=== PATIENT | female | born 1965 | race Caucasian/White ===

== ENCOUNTER → 2021-07-12 | Outpatient (CLI) | payer MEDICARE, OTHER | END | disposition home or self-care (01) | LOC: LAB SHORT 16:00 | DX: R31.0 Gross hematuria (principal) | CPT/HCPCS: 87086 ==

== ENCOUNTER → 2021-09-18 | Outpatient (CLI) | payer MEDICARE, OTHER | LOC: LAB 10:15 → LAB SHORT 10:15 | DX: R30.0 Dysuria (principal) | CPT/HCPCS: 87086 ==

== ENCOUNTER → 2021-11-02 | Outpatient (CLI) | payer MEDICARE ==
[2021-11-02 17:45] LABS: Source, Urine Clean Catch
[2021-11-02 18:49] LABS: Blood, Urine 1+ (Neg); Glucose Qualitative, Urine Neg (Neg); Ketones, Urine Neg (Neg); Leukocyte Esterase, Urine 1+ (Neg); Nitrite, Urine Pos (Neg); Protein, Urine Neg (Neg); Specific Gravity, Urine 1.015 (1.003-1.022); Urobilinogen, Urine 3+ (Normal)
[2021-11-02 19:06] LABS: Bilirubin, Urine 2+ (Neg); Color, Urine Orange (P-Yellow)
[2021-11-02 19:07] LABS: Appearance, Urine Hazy (Clear)
[2021-11-02 19:08] LABS: Bacteria Mod /hpf; Mucus Light (0-Heavy); Red Blood Cells, Urine 0-2 /hpf (0-2); Squamous Epithelial Cells Few /hpf (Few); White Blood Cells, Urine 0-2 /hpf (0-5)
[2021-11-02 19:09] LABS: Amorphous Light (0-Heavy)
== END ==
LOC: LAB 17:43 → LAB SHORT 17:43
PROVIDERS: Nurse Practitioner Family
DX: R30.0 Dysuria (principal)
CPT/HCPCS: 81001; 87086

== ENCOUNTER → 2022-02-14 | Outpatient (CLI) | payer MEDICARE, OTHER ==
[2022-02-14 17:13] LABS: Source, Urine Clean Catch
[2022-02-14 18:06] LABS: Appearance, Urine Clear (Clear); Bilirubin, Urine Neg (Neg); Blood, Urine 2+ (Neg); Color, Urine Yellow (P-Yellow); Glucose Qualitative, Urine Neg (Neg); Ketones, Urine Neg (Neg); Leukocyte Esterase, Urine 1+ (Neg); Nitrite, Urine Neg (Neg); Protein, Urine Neg (Neg); Specific Gravity, Urine 1.005 (1.003-1.022); Urobilinogen, Urine NORM (Normal)
[2022-02-14 18:23] LABS: Red Blood Cells, Urine 0-2 /hpf (0-2); Squamous Epithelial Cells Mod /hpf (Few); White Blood Cells, Urine 0-2 /hpf (0-5)
[2022-02-14 18:24] LABS: Bacteria Few /hpf; Renal Epithelial Rare /hpf (0-Rare)
== END ==
LOC: LAB 13:15 → LAB SHORT 13:15
PROVIDERS: Nurse Practitioner Family
DX: R39.15 Urgency of urination (principal)
CPT/HCPCS: 81001; 87086; 87147

== ENCOUNTER 2022-10-01 10:36 | Inpatient (IN) | payer MEDICARE, OTHER ==
[2022-10-01] VITALS (23 sets, daily range): BP systolic 119–159; BP diastolic 64–130
[~2022-10-01] VITALS: Ht 170.2 cm; Wt 51.0 kg
[2022-10-01 11:48] LABS: Free Thyroxine 1.21 ng/dL (0.70-1.60); Salicylate 5.8 mg/dL (2.8-20.0); Thyroid Stimulating Hormone 0.481 uIU/mL (0.360-4.800)
[2022-10-01 11:49] LABS: Alanine Aminotransfer (ALT/SGP 30 U/L (12-78); Albumin, Blood 4.5 g/dL (3.4-5.0); Alk Phos 126 U/L (50-136); Anion Gap 16 mmol/L (6-16); Aspartate Aminotrans (AST/SGOT 33 U/L (12-37); Bilirubin, Total 0.8 mg/dL (0.1-1.0); Blood Urea Nitrogen 21 mg/dL (8-24); Bun/Creatinine Ratio 21.4 (12.0-20.0); CO2, Blood 20 mmol/L (21-32); Calcium, Blood 10.5 mg/dL (8.5-10.1); Chloride, Blood 109 mmol/L (98-108); Creatinine, Blood 0.98 mg/dL (0.40-1.00); Globulin, Blood 4.6 g/dL (2.2-4.0); Glomerular Filtration Rate 67 (60-); Glucose, Blood 178 mg/dL (70-99); Potassium, Blood 3.5 mmol/L (3.5-5.5); Sodium, Blood 145 mmol/L (136-145); Total Protein, Blood 9.1 g/dL (6.4-8.2)
[2022-10-01 11:50] LABS: Acetaminophen, Random <2.0 ug/mL (10.0-30.0); Ethanol (Alcohol), Blood, Med <3 mg/dL
[2022-10-01 11:55] LABS: BASOPHILS ABSOLUTE AUTO 0.03 K/mm3 (0.00-0.23); BASOPHILS PERCENT AUTO 0 % (0-2); EOSINOPHILS PERCENT AUTO 0 % (0-6); Hematocrit 46.7 % (33.0-51.0); Hemoglobin 15.3 g/dL (11.5-16.0); IMMATURE GRAN ABSOLUTE AUTO 0.03 K/mm3 (0.00-0.10); IMMATURE GRAN PERCENT AUTO 0 % (0-1); LYMPHOCYTES ABSOLUTE AUTO 1.09 K/mm3 (0.84-5.20); LYMPHOCYTES PERCENT AUTO 9 % (21-46); MONOCYTES ABSOLUTE AUTO 0.35 K/mm3 (0.16-1.47); MONOCYTES PERCENT AUTO 3 % (4-13); Mean Corpuscular HGB 30.1 pg (26.0-34.0); Mean Corpuscular HGB Conc 32.8 g/dL (31.5-36.5); Mean Corpuscular Volume 92 fL (80-100); Mean Platelet Volume 10.6 fL (9.1-12.4); NEUTROPHILS ABSOLUTE AUTO 10.45 K/mm3 (1.96-9.15); NEUTROPHILS PERCENT AUTO 87 % (41-73); Platelet Count 343 K/mm3 (150-400); RDW Coefficient Variation 13.7 % (11.7-14.2); RDW Standard Deviation 46.4 fL (35.1-46.3); Red Blood Cell Count 5.08 M/mm3 (3.80-5.20); White Blood Cell Count 11.95 K/mm3 (4.00-11.30)
[2022-10-01] MEDS ORDERED: ATOR40TA PO (14:19)
[2022-10-01] MEDS ORDERED: LIOT5 PO (14:20)
[2022-10-01] MEDS ORDERED: NEURONTIN300 MG PO (14:20)
[2022-10-01] MEDS ORDERED: QUETIAPINE FUMA5012 PO (14:20)
[2022-10-01] MEDS ORDERED: PRAZOSIN HCL1 M2 PO (14:20)
[2022-10-01] MEDS ORDERED: ZOLOFT10013 PO (14:20)
[2022-10-01] MEDS ORDERED: Alprazolam ER0.5 MG PO (14:20)
[2022-10-01 15:21] LABS: Source, Urine Straight Cath
[2022-10-01 15:27] LABS: Appearance, Urine Clear (Clear); Bilirubin, Urine Neg (Neg); Blood, Urine 4+ (Neg); Glucose Qualitative, Urine Neg (Neg); Ketones, Urine Neg (Neg); Leukocyte Esterase, Urine Neg (Neg); Nitrite, Urine Neg (Neg); Protein, Urine 2+ (Neg); Urobilinogen, Urine NORM (Normal)
[2022-10-01 15:33] LABS: Color, Urine Pale Yellow (P-Yellow)
[2022-10-01 15:34] LABS: Bacteria Rare /hpf; Squamous Epithelial Cells Not Seen /hpf (Few); White Blood Cells, Urine 0-2 /hpf (0-5)
[2022-10-01 15:39] LABS: U Amphetamine Screen Not Detected; U Barbituate Screen Not Detected; U Benzodiazapine Screen DETECTED; U Buprenorphine Screen Not Detected; U Cannabinoids Screen DETECTED; U Cocaine Screen Not Detected; U Methadone Screen DETECTED; U Methamphetamine Screen Not Detected; U Opiates Screen Not Detected; U Oxycodone Screen Not Detected; U Phencyclidine Screen Not Detected; U Propoxyphene Screen Not Detected
--- NOTE | 2022-10-01 17:10 | NUR ---
1600- WANDA ARRIVES TO ICU LYING ON HER RIGHT SIDE ON THE GURNEY, IMMEDIATELY BEGINS SWATTING AT STAFF WHEN EFFORTS MADE TO MOVE HER TO ICU BED. CONTINUED TO COVER HERSELF BACK UP, WOULD NOT ACKNOWLEDGE VOICE OR FOLLOW COMMANDS, WOULD NOT ANSWER QUESTIONS, MADE NO VERBAL SOUNDS. IV NOTED TO BE INFLAMMED AND SWOLLEN, IV R/S ON THE RIGHT FOREARM. PT IN WRIST RESTRAINTS FOR NON COMPLIANCE AND STRIKING AT STAFF. MONITOR SHOWING PROLONGED QT >500, BP AND HR STABLE WHEN PT IS LEFT ALONE. LUNG SOUNDS CLEAR, BELLY QUIET, BARCENAS TO GRAVITY DRAINAGE, PRECEDEX GTT @ 1.4MCG/KG, NS @ 100ML/HR. PT'S PUPILS ~4MM AND REACTIVE BUT WITH A SLIGHT NYSTAGMUS. CONTINUES TO BE NON VERBAL, NOTED OCC EYEBROW RAISES AND GRIN.
--- NOTE | 2022-10-01 18:29 | NUR ---
WANDA HAS SETTLED DOWN WITH THE INFUSION OF THE PRECEDEX, AN ADDITIONAL IV SITE WAS STARTED AND BLOOD DRAWN WITH MINIMAL RESPONSE. SHE REMAINS IN WRIST RESTRAINTS AT THIS TIME FOR SAFETY OF LINES/TUBES/STAFF. BARCENAS CONTINUES WITH GOOD OUTPUT, YELLOW. PT REMAINS CURLED IN POSITION VITALS STABLE.
[2022-10-01 18:32] LABS: Base Excess Venous -1.8 mmol/L; Bicarbonate Venous 23.4 mmol/L (24.0-30.0); PCO2 Venous 35.1 mmHg (38-42); pH Blood Venous 7.42 (7.34-7.37)
--- NOTE | 2022-10-01 19:30 | NUR ---
ASSUMPTION OF CARE PT IS SEDATED ON PRECEDEX DRIP. SHE RESTS QUIETLY UNLESS STIMULATED THEN SHE BECOMES VERY AGITATED, PULLING ON RESTRAINTS. SHE DOES NOT MAINTAIN EYE CONTACT OR FOLLOW DIRECTIONS. SHE IS UNABLE TO BE REORIENTED AT THIS TIME. PUPILS ARE SLUGGISH BUT REACTIVE AT 5MM, EQUAL. SHE IS NOTED TO MOVE ALL EXTREMITIES W/NO NOTABLE WEAKNESS OR DEFICIT TO EITHER SIDE AT THIS TIME.
--- NOTE | 2022-10-01 20:10 | NUR ---
SPOKE W/DANUTA AT POISON CONTROL PT WAS REPORTED TO HAVE USED XYLAZINE. ADVISED THAT PT DID NOT PRESENT HAVE USED THIS BECAUSE SHE WAS THE OPPOSITE OF USUAL CLINICAL PRESENTATION. NO RECOMMENDATIONS GIVEN FOR TREATMENT OR FOLLOW UP AT THIS TIME.
[2022-10-02] VITALS (78 sets, daily range): BP systolic 106–177; BP diastolic 62–102
--- NOTE | 2022-10-02 00:14 | NUR ---
DR MCCAIN NOTIFIED THAT PT PRECEDEX DRIP WAS STOPPED AT 2253 DUE TO ASYMPTOMATIC BRADYCARDIA. BP MAP HAVE REMAINED GREATER THAN 65. NO NEW ORDERS AT THIS TIME.
[2022-10-02 03:51] LABS: BASOPHILS ABSOLUTE AUTO 0.02 K/mm3 (0.00-0.23); BASOPHILS PERCENT AUTO 0 % (0-2); EOSINOPHILS ABSOLUTE AUTO 0.01 K/mm3 (0.00-0.68); EOSINOPHILS PERCENT AUTO 0 % (0-6); Hemoglobin 12.5 g/dL (11.5-16.0); IMMATURE GRAN ABSOLUTE AUTO 0.03 K/mm3 (0.00-0.10); IMMATURE GRAN PERCENT AUTO 0 % (0-1); LYMPHOCYTES ABSOLUTE AUTO 1.95 K/mm3 (0.84-5.20); LYMPHOCYTES PERCENT AUTO 18 % (21-46); MONOCYTES ABSOLUTE AUTO 0.82 K/mm3 (0.16-1.47); MONOCYTES PERCENT AUTO 7 % (4-13); Mean Corpuscular HGB 29.9 pg (26.0-34.0); Mean Corpuscular HGB Conc 33.8 g/dL (31.5-36.5); Mean Corpuscular Volume 89 fL (80-100); Mean Platelet Volume 10.4 fL (9.1-12.4); NEUTROPHILS ABSOLUTE AUTO 8.19 K/mm3 (1.96-9.15); NEUTROPHILS PERCENT AUTO 74 % (41-73); Platelet Count 243 K/mm3 (150-400); RDW Coefficient Variation 14.1 % (11.7-14.2); RDW Standard Deviation 45.1 fL (35.1-46.3); Red Blood Cell Count 4.18 M/mm3 (3.80-5.20); White Blood Cell Count 11.02 K/mm3 (4.00-11.30)
--- NOTE | 2022-10-02 04:33 | NUR ---
PT IV INFILTRATED, SHE BECAME EXTREMELY AGITATED AND RESTLESS. SHE WAS UNABLE TO REMAIN STILL WHILE ANOTHER IV WAS STARTED. SHE WAS KICKING AND ATTEMPTING TO COME OUT OF HER BED AND SHE WAS NOT REDIRECTABLE. DR MCCAIN WAS NOTIFIED AND AN ORDER FOR IM ATIVAN WAS GIVEN. THE MEDICATION WAS ADMINISTERED TO THE PT AND SHE WAS ABLE TO CALM DOWN WHILE ANOTHER IV WAS PLACED. PRECEDEX DRIP IS INFUSING AT THIS TIME, PT IS RESTING COMFORTABLY W/EYES CLOSED.
[2022-10-02 04:42] LABS: Albumin, Blood 3.2 g/dL (3.4-5.0); Albumin/Globulin Ratio 0.9 (0.8-1.8); Bilirubin, Total 0.5 mg/dL (0.1-1.0); Bun/Creatinine Ratio 24.1 (12.0-20.0); Calcium, Blood 8.8 mg/dL (8.5-10.1); Creatinine, Blood 0.91 mg/dL (0.40-1.00); Globulin, Blood 3.6 g/dL (2.2-4.0); Potassium, Blood 3.8 mmol/L (3.5-5.5); Total Protein, Blood 6.8 g/dL (6.4-8.2)
--- NOTE | 2022-10-02 05:56 | NUR ---
SHIFT SUMMERY PT WAS VERY AGITATED AT TIMES DUE TO W/DRAWAL. PRECEDEX DRIP IS AT 0.5, PT IS RESTING COMFORTABLY W/EYES CLOSED CURRENTLY. SHE HAS HAD BRADYCARDIA AT TIMES BUT MAINTAINED ADEQUATE BP AND OXYGENATION. NO TREATMENT NEEDED BUT DR MCCAIN WAS NOTIFIED. SHE DID BECOME MORE APPROPRIATLY RESPONSIVE THE SHIFT PROGRESSED, MAINTAINING EYE CONTACT AND ABLE TO BE SOMEWHAT REDIRECTABLE AT TIMES. ATIVAN WAS GIVEN TWICE TO HELP MANAGE PT SYMPTOMS AND WAS EFFECTIVE EACH TIME. PT IS ON ROOM AIR.
--- NOTE | 2022-10-02 07:30 | NUR ---
CARE ASSUMPTION DURING BEDSIDE SHIFT REPORT Bess SOSA RN THE PT IS LYING IN BED ASLEEP W SWB RESTRAINTS IN PLACE. PT AWAKENS TO OUR VOICE AND MAKES MEANINGFUL EYE CONTACT. PT IS NONVERBAL BUT NODS HER HEAD TO YES OR NO QUESTIONS. PT APPEARING VERY RESTLESS WHEN AWAKE SHE IS PULLING AGAINST RESTRAINTS AND TOSSING SIDE TO SIDE. PT HAS PRECEDEX GTT RUNNING, GTT RATE REDUCED AT THIS TIME DUE TO BRADYCARDIA SEE FLOWSHEET FOR DETAILS. MONITOR SHOWING SB 47-55. PT GIVEN WARM BLANKET AND IS ASLEEP ONCE WE EXITED THE .
--- NOTE | 2022-10-02 07:48 | NUR ---
UPDATE PT'S SO AT BEDSIDE W THIS RN, PT AWAKE AND COMMUNICATING VERBALLY. PT IS AXO TO SELF BUT DOES NOT KNOW WHERE SHE IS OR WHY SHE IS HERE. PT TEARFUL BUT MUCH CALMER AT THIS TIME.
[2022-10-02 11:18] LABS: Creatine Kinase MB 21.7 ng/mL (0.0-3.6)
[2022-10-02 11:25] LABS: Creatine Kinase MB Index 0.9 (0.0-4.0)
--- NOTE | 2022-10-02 14:25 | NUR ---
Pt. is awake in bed when I visit. Pt. displays some anxiety when I first visit, and is unsettled about being a Pt. in the hospital. Listen with empathy and a calming presence, and attempting to normalize the Pt. experience. The Pt. displayed evidence of understanding and presented with less anxiety. Prayed with Pt. Pt. verbalized gratitude for the spiritual care visit.
--- NOTE | 2022-10-02 16:19 | NUR ---
UPDATE PT IS VERY AGITATED TURNING HERSELF IN BED AND ATTEMPTING TO EXIT THE BED EVEN WITH THE SWB RESTRAINTS IN PLACE. DR. HILLIARD AND DR. LANDRY AT BEDSIDE SPEAKING WITH PT. PT AGREEING TO STAY ONE MORE NIGHT.
--- NOTE | 2022-10-02 17:26 | NUR ---
DAYSHIFT SUMMARY PT HAS REMAINED AXO TO SELF THIS SHIFT BUT NEEDING REDIRECTED OFTEN ABOUT WHERE SHE IS AND WHY SHE IS HERE. PT HAS BEEN COMMUNICATING W STAFF ALL SHIFT BUT BECOMES FEARFUL AND AFRAID AT TIMES FOR NO APPERENT REASON THOUGH SHE IS CALMED EASILY W REASSURANCE THAT SHE IS SAFE AND GETTING BETTER. PT'S MOITOR SHOWING SR 60'S THIS AFTERNOON THOUGH SHE HAS BEEN SINUS JOSUE LOW 42 DUE TO THE PRECEDEX GTT. BP MODERATELY ELEVATED THIS SHIFT W SBP 140'S-160'S. SPO2 >94% ON RM AIR. PT AFEBRILE THIS SHIFT. PT VERY ANXIOUS ALL SHIFT REQUIRING PRECEDEX GTT, SEE FLOWSHEET FOR DETAILS. PT RECIEVED GEODON X2 THIS SHIFT FOR AGITATION. PT PASSING BEDSIDE SWALLOW EVAL THIS SHIFT AND ORDERED A REGULAR DIET AND ATE APPROX 50% OF HER DINNER. PT HAS BARCENAS CATHETER THAT IS PATENT AND DRAINED 1200ML CLEAR YELLOW URINE THIS SHIFT. PT SWITCHED FROM SWB RESTRAINTS TO NIKHIL VEST THIS AFTERNOON THE BIGGER CONCERN WAS HER IMPULSIVENESS TO EXIT THE BED/CHAIR RATHER THAN HER PULLING AT LINES. PT RESTARTED ON HER METHADONE THIS SHIFT, DOSE CONFIRMED WITH [facility] DIRECTOR BEFORE ORDERED. PT CURRENTLY SITTING IN CHAIR WITH PRECEDEX RUNNING AT 0.6 MCG/KG/HR AND NS RUNNING AT 100ML/HR. WILL REPORT TO ONCOMING RN.
--- NOTE | 2022-10-02 20:47 | NUR ---
ASSUMED CARE OF PT AT 1915. REPORT RECEIVED AT BEDSIDE. PT PRESENTS IN BEDSIDE CHAIR. SITTER IN ROOM. PT PARTICIPATES IN REPORT. PT DEMONSTRATES BEING VERY IMPULSIVE. PULLS AT LINES AND TUBES. SITTER BUSY WITH KEEPING PT SAFE FROM SELF HARM. PT VERBALLY CHALLENGING TO SITTER. NEEDS FREQUENT REDIRECTION. 10 MG GEODON GIVEN IM TO RIGHT DELTOID. NO SIGNIFICANT CHANGE NOTED. DID INCREASE PRECEDEX DRIP TO 0.5 MCG'S/KG/HOUR. PENDING RESULTS. WILL REVIEW CHART AND PLAN OF CARE FOR THIS PT.
[2022-10-03] VITALS (20 sets, daily range): BP systolic 141–182; BP diastolic 82–122
--- NOTE | 2022-10-03 01:43 | NUR ---
PT VOICES THAT SHE FEELS "LESS ANTSY" MORE ALERT AND CONVERSANT. HAVE TITRATED PRECEDEX TO 0.4 MCG'S/KG/HOUR. WILL CONTINUE TO TITRATE ABLE. PT NO LONGER PULLING AT LINES. PT STATES THAT SHE FEELS BETTER WITHOUT THE CATHETER. HAS BEEN ABLE TO TELL SITTER THAT SHE NEEDS TO GET UP TO COMMODE TO VOID. WILL CONTINUE TO MONITOR.
[2022-10-03 03:42] LABS: BASOPHILS ABSOLUTE AUTO 0.02 K/mm3 (0.00-0.23); BASOPHILS PERCENT AUTO 0 % (0-2); EOSINOPHILS ABSOLUTE AUTO 0.02 K/mm3 (0.00-0.68); EOSINOPHILS PERCENT AUTO 0 % (0-6); Hematocrit 35.7 % (33.0-51.0); Hemoglobin 12.2 g/dL (11.5-16.0); IMMATURE GRAN ABSOLUTE AUTO 0.04 K/mm3 (0.00-0.10); IMMATURE GRAN PERCENT AUTO 1 % (0-1); LYMPHOCYTES ABSOLUTE AUTO 2.04 K/mm3 (0.84-5.20); LYMPHOCYTES PERCENT AUTO 27 % (21-46); MONOCYTES ABSOLUTE AUTO 0.51 K/mm3 (0.16-1.47); MONOCYTES PERCENT AUTO 7 % (4-13); Mean Corpuscular HGB 29.9 pg (26.0-34.0); Mean Corpuscular HGB Conc 34.2 g/dL (31.5-36.5); Mean Corpuscular Volume 88 fL (80-100); Mean Platelet Volume 9.3 fL (9.1-12.4); NEUTROPHILS ABSOLUTE AUTO 4.93 K/mm3 (1.96-9.15); NEUTROPHILS PERCENT AUTO 65 % (41-73); Platelet Count 231 K/mm3 (150-400); RDW Coefficient Variation 13.7 % (11.7-14.2); RDW Standard Deviation 43.7 fL (35.1-46.3); Red Blood Cell Count 4.08 M/mm3 (3.80-5.20); White Blood Cell Count 7.56 K/mm3 (4.00-11.30)
[2022-10-03 04:01] LABS: Albumin, Blood 3.4 g/dL (3.4-5.0); Bilirubin, Total 0.4 mg/dL (0.1-1.0); Bun/Creatinine Ratio 18.1 (12.0-20.0); Calcium, Blood 8.6 mg/dL (8.5-10.1); Creatinine, Blood 0.83 mg/dL (0.40-1.00); Globulin, Blood 3.3 g/dL (2.2-4.0); Magnesium, Blood 1.6 mg/dL (1.6-2.4); Phosphorus, Blood 2.5 mg/dL (2.5-4.9); Potassium, Blood 2.6 mmol/L (3.5-5.5); Total Protein, Blood 6.7 g/dL (6.4-8.2)
--- NOTE | 2022-10-03 07:05 | NUR ---
PT HAS BECOME SOMEWHAT ANXIOUS THIS MORNING WANTING TO GO HOME NOW. DID EXPLAIN TO PT THAT HER DOCTOR WILL BE IN AND MAKE THE DECISION IF SHE IS MEDICALLY READY TO GO HOME. WILL CONTINUE TO MONITOR PT, AND WILL REPORT OFF TO ONCOMING RN.
--- NOTE | 2022-10-03 07:10 | NUR ---
CARE ASSUMPTION DURING BEDSIDE SHIFT REPORT WITH MARY CANADA THE PT IS SITTING UPRIGHT IN BED ON RM AIR. PT IS VERY ANXIOUS BUT ENGAGING IN CALM CONVERSATION. PT'S MONITOR SHOWS SR IN THE 60'S. PT IN NO DISTRESS BUT IS VERBALLY EXPRESSING HER DESIRE TO LEAVE THIS AM. PT REDIRECTED AND EDUCATED THAT THE PROVIDER WILL ASSESS HER THIS AM AND MAKE THAT DECESION. PT AGREEING TO PARTICIPATE IN CARE UNTIL THAT POINT.
[2022-10-03] MEDS ORDERED: POTA10T PO (10:27)
--- NOTE | 2022-10-03 10:46 | NUR ---
DISCHARGE PT REVIEWED DISCHARGE INSTRUCTIONS W THIS RN. IV'S DC'D. RX FAXED TO PT'S PRIMARY PHARMACY. PT'S RIDE CONTACTED AND PT TAKEN OUT IN WC.
== END 2022-10-03 10:50 | disposition home or self-care (01) | DRG 93 ==
LOC: ER 10:36 → ICUE 14:37
PROVIDERS: Emergency Medicine; Family Medicine; ADMIT Internal Medicine
DX: G92.8 Other toxic encephalopathy (principal); T43.505A Adverse effect of unspecified antipsychotics and neuroleptics, initial encounter; Z66 Do not resuscitate; F12.10 Cannabis abuse, uncomplicated; E03.9 Hypothyroidism, unspecified; E87.6 Hypokalemia; F15.10 Other stimulant abuse, uncomplicated; F11.10 Opioid abuse, uncomplicated; G89.29 Other chronic pain; F17.210 Nicotine dependence, cigarettes, uncomplicated; M54.9 Dorsalgia, unspecified; E78.5 Hyperlipidemia, unspecified; Z88.0 Allergy status to penicillin; Z91.030 Bee allergy status; Z91.038 Other insect allergy status; Z87.440 Personal history of urinary (tract) infections; Z86.19 Personal history of other infectious and parasitic diseases; Z78.1 Physical restraint status; Z79.899 Other long term (current) drug therapy; Z79.02 Long term (current) use of antithrombotics/antiplatelets; Z98.890 Other specified postprocedural states
CPT/HCPCS: 36415; 51702; 51798; 70450; 71045; 80053; 81001; 81025; 82550; 82553; 82746; 82803; 83605; 83735; 84100; 84439; 84443; 85025; 87040; 93005; 93010; 96361-59; 96365-59; 96366-59; 96367-59; 96375-59; 96376-59; 99285-25; A9270; G0480; J0696; J1650; J2060; J3475; J3486; J7030; J7050

== ENCOUNTER → 2023-01-21 | Outpatient (CLI) | payer MEDICARE, OTHER ==
[~2023-01-21] MED LIST: ATOR40TA PO; Alprazolam ER0.5 MG PO; LIOT5 PO; NEURONTIN300 MG PO; POTA10T PO; PRAZOSIN HCL1 M2 PO; QUETIAPINE FUMA5012 PO; ZOLOFT10013 PO
== END ==
LOC: LAB SHORT 17:20 → LAB 17:20
DX: R30.0 Dysuria (principal)
CPT/HCPCS: 87086

== ENCOUNTER → 2023-04-03 | Outpatient (CLI) | payer MEDICARE, OTHER ==
[2023-04-03 18:40] LABS: Source, Urine Clean Catch
[2023-04-03 18:46] LABS: Appearance, Urine Clear (Clear); Bilirubin, Urine Neg (Neg); Blood, Urine 2+ (Neg); Color, Urine Amber (P-Yellow); Glucose Qualitative, Urine Neg (Neg); Ketones, Urine Neg (Neg); Leukocyte Esterase, Urine 1+ (Neg); Nitrite, Urine Neg (Neg); Protein, Urine 1+ (Neg); Specific Gravity, Urine 1.015 (1.003-1.022); Urobilinogen, Urine NORM (Normal)
[2023-04-03 18:57] LABS: Bacteria Few /hpf; Squamous Epithelial Cells Few /hpf (Few)
== END ==
LOC: LAB 17:31 → LAB SHORT 17:31
PROVIDERS: Family Medicine
DX: R30.0 Dysuria (principal); R10.2 Pelvic and perineal pain; R31.9 Hematuria, unspecified
CPT/HCPCS: 81001; 87086

== ENCOUNTER 2023-10-04 04:24 | Inpatient (IN) | payer MEDICARE, OTHER ==
[~2023-10-04] VITALS: Ht 170.2 cm; Wt 54.4 kg
[~2023-10-04 04:24] MED LIST changes: +ALPRAZOLAM0.25 MG PO; -Alprazolam ER0.5 MG PO; +Estrace Vagin42.5 GM VAG; +NITR100CA PO; +OLAN2.5 PO; +STIOLTO RESPIMAT4 G1 INH
[2023-10-04 04:48] LABS: Appearance, Urine Clear (Clear); Bilirubin, Urine Neg (Neg); Blood, Urine 4+ (Neg); Color, Urine Yellow (P-Yellow); Glucose Qualitative, Urine Neg (Neg); Ketones, Urine Neg (Neg); Leukocyte Esterase, Urine 1+ (Neg); Nitrite, Urine Neg (Neg); Protein, Urine 2+ (Neg); Source, Urine Clean Catch; Specific Gravity, Urine 1.015 (1.003-1.022); Urobilinogen, Urine NORM (Normal)
[2023-10-04] MEDS ORDERED: ATOR10 PO (04:50)
[2023-10-04] MEDS ORDERED: PRAZ1 PO (04:50)
[2023-10-04] MEDS ORDERED: GABA100 PO (04:50)
[2023-10-04 05:08] LABS: U Benzodiazapine Screen DETECTED; U Cannabinoids Screen DETECTED; U Methadone Screen DETECTED
[2023-10-04 05:09] LABS: BASOPHILS ABSOLUTE AUTO 0.04 K/mm3 (0.00-0.23); BASOPHILS PERCENT AUTO 1 % (0-2); EOSINOPHILS ABSOLUTE AUTO 0.11 K/mm3 (0.00-0.68); EOSINOPHILS PERCENT AUTO 2 % (0-6); Hematocrit 42.6 % (33.0-51.0); Hemoglobin 14.1 g/dL (11.5-16.0); IMMATURE GRAN ABSOLUTE AUTO 0.01 K/mm3 (0.00-0.10); IMMATURE GRAN PERCENT AUTO 0 % (0-1); LYMPHOCYTES ABSOLUTE AUTO 1.96 K/mm3 (0.84-5.20); LYMPHOCYTES PERCENT AUTO 37 % (21-46); MONOCYTES ABSOLUTE AUTO 0.32 K/mm3 (0.16-1.47); MONOCYTES PERCENT AUTO 6 % (4-13); Mean Corpuscular HGB 29.3 pg (26.0-34.0); Mean Corpuscular HGB Conc 33.1 g/dL (31.5-36.5); Mean Corpuscular Volume 88 fL (80-100); Mean Platelet Volume 11.2 fL (9.1-12.4); NEUTROPHILS ABSOLUTE AUTO 2.83 K/mm3 (1.96-9.15); NEUTROPHILS PERCENT AUTO 54 % (41-73); Platelet Count 202 K/mm3 (150-400); RDW Coefficient Variation 13.3 % (11.7-14.2); RDW Standard Deviation 42.8 fL (35.1-46.3); Red Blood Cell Count 4.82 M/mm3 (3.80-5.20); White Blood Cell Count 5.27 K/mm3 (4.00-11.30)
[2023-10-04 05:09] LABS: U Amphetamine Screen Not Detected; U Barbituate Screen Not Detected; U Buprenorphine Screen Not Detected; U Cocaine Screen Not Detected; U Methamphetamine Screen Not Detected; U Opiates Screen Not Detected; U Oxycodone Screen Not Detected; U Phencyclidine Screen Not Detected
[2023-10-04 05:17] LABS: Bacteria Mod /hpf; Squamous Epithelial Cells Few /hpf (Few)
[2023-10-04] MEDS ORDERED: Ziprasidone Mesylate 20 MG / Vial IM ONE (05:40)
[2023-10-04 05:42] LABS: Ethanol (Alcohol), Blood, Med <3 mg/dL; Magnesium, Blood 2.3 mg/dL (1.6-2.4); Salicylate 8.6 mg/dL (2.8-20.0)
[2023-10-04 05:45] LABS: Alanine Aminotransfer (ALT/SGP 16 U/L (12-78); Albumin, Blood 4.2 g/dL (3.4-5.0); Alk Phos 135 U/L (50-136); Anion Gap 9 mmol/L (3-11); Aspartate Aminotrans (AST/SGOT 15 U/L (12-37); Bilirubin, Total 0.4 mg/dL (0.1-1.0); Blood Urea Nitrogen 20 mg/dL (8-24); Bun/Creatinine Ratio 23.8 (12.0-20.0); CO2, Blood 23 mmol/L (21-32); Chloride, Blood 118 mmol/L (98-108); Creatinine, Blood 0.84 mg/dL (0.40-1.00); Glomerular Filtration Rate 80 (60-); Glucose, Blood 134 mg/dL (70-99); Potassium, Blood 3.6 mmol/L (3.5-5.5); Sodium, Blood 146 mmol/L (136-145); Total Protein, Blood 8.2 g/dL (6.4-8.2)
[2023-10-04 05:47] LABS: Acetaminophen, Random <2.0 ug/mL (10.0-30.0)
[2023-10-04] MEDS ORDERED: LORazepam 1 MG Tab PO ONE (08:30)
[2023-10-04] MEDS ORDERED: OLANZapine 10 MG Vial IM ONE ×2 (09:40→12:50)
[2023-10-04] MEDS ORDERED: OLANZapine ODT 5 MG Tab MM PRN (11:00)
[2023-10-04] MEDS ORDERED: Ondansetron HCl 2 MG / ML 2ML Vial IV PRN (11:00)
[2023-10-04] MEDS ORDERED: Haloperidol Lactate Inj. 5 MG/ML Injection IV ONE (13:05)
--- NOTE | 2023-10-04 14:33 | NUR ---
1430 Received report and pt to room 347. Pt lethargic, verbally aroused, nonverbal. Spring in place. Pain and safety maintained at this time. Will continue to monitor.
--- NOTE | 2023-10-04 14:41 | NUR ---
PT ADMITTED TO ROOM 308 FROM ED AT 1217, PT WAS AGITATED AND TRYING TO GET OFF GOURNEY BEFORE RAILS WERE DOWN. PT IMMEDIATELY TRIED TO GET OUT THE DOOR. RN REDIRECTED HER AND STOOD IN THE ROOM WITH PT FOR AN HOUR REDIRECTING. PT NONVERBAL, MIN EYE CONTACT. AMBULATORY, AGITATED AND MOVING FROM BED TO CHAIR TO BATHROOM AND AGAIN TRYING TO GET OUT OF ROOM, WOULD BUMP INTO RN BUT WAS REDIRECTABLE WITH VERBAL CUEING ANS SHE WOULD TRY ANOTHER WAY. CALLED SECURITY TO STANDBY OUTSIDE OF ROOM SHOULD PT ESCAPE. ORIENTED PT TO PLACE, CALL LIGHT AND SAFETY. PT WOULD NOT DRINK WATER WHEN OFFERED. CALLED DR MICHAEL TO INFORM HIM OF CIRCUMSTANCES. HE CAME TO BEDSIDE APPROX 1245, ORDERED ZYPREXA, GIVEN 5MG IM AND 4 STAFF ASSISTED PT TO BED AND APPLIED A NIKHIL VEST. WORKING ON GETTING A BED IN SCU. FOR NOW 1:1 INITIATED. AFTER ZYPREXA, PT SOON FELL ASLEEP AND STILL MOVES AROUND A BIT IN BED IS NOT ATTEMPTING TO ACTIVELY GET OOB. SITTER IN PLACE OF 1315. REPORT TO VLAD 1410, MOVED PT TO ROOM 347 AT 1418. PT STAYED IN BED,BED SWAP.
[2023-10-04] MEDS ORDERED: Haloperidol Lactate Inj. 5 MG/ML Injection IV PRN (16:15)
[2023-10-04 17:37] VITALS: BP 180/119
--- NOTE | 2023-10-04 17:40 | NUR ---
Pt woke up diaphoretic and agitated. Remains nonverbal. Thrashing in bed. Concerned of low bp, however bp elevated. Will recheck once pt settles. Pt now resting quietly.
[2023-10-04] MEDS ORDERED: Prazosin HCl 1 MG Cap PO SCH (21:00)
[2023-10-04] MEDS ORDERED: Gabapentin 100 MG Cap PO SCH (21:00)
--- NOTE | 2023-10-05 02:45 | NUR ---
Attempt to take vital signs at begining of shift was inappropriate due to patients duress and sparatic movements. Shortly after she began dry heaving, Patient calmed down and has been less aggitated the second part of my shift
[2023-10-05] MEDS ORDERED: Liothyronine Sodium 5 MCG Tab PO SCH (06:00)
[2023-10-05 06:17] LABS: Bun/Creatinine Ratio 30.2 (12.0-20.0); Calcium, Blood 10.4 mg/dL (8.5-10.1); Creatinine, Blood 1.06 mg/dL (0.40-1.00); Potassium, Blood 4.6 mmol/L (3.5-5.5)
--- NOTE | 2023-10-05 06:25 | NUR ---
SHIFT SUMMARY: PATIENT MUTE, NO INDICATION THAT PATIENT UNDERSTANDS THAT SHE IS BEING TALKED TO. PUPILS ARE DILATED AT 4-5 WITH SLUGGISH REFLEX, DOES NOT FOCUS ON ANYTHING IN THE ROOM. PATIENT SLEPT FOR THIRTY MINUTES AT 10PM - PATIENT SPENT MOST OF SHIFT RESTLESS IN BED, MOVING FROM SUPINE TO PRONE TO LEFT SIDE TO RIGHT SIDE TO SITTING TO CROSS LEGGED EVERY TEN SECONDS. PATIENT IN NIKHIL VEST. LABS WERE TAKEN BY FOUR STAFF MEMBERS HOLDING PATIENT STILL AND BY TWO PHLEBOTOMISTS. PATIENT NON-REDIRECTABLE. PATIENT HAD AN EPISODE OF DRY HEAVING AT 11PM, WITH NO EMESIS. HALDOL GIVEN TWICE DURING SHIFT. NO ORAL MEDICATIONS TAKEN BY PATIENT. PATIENT WILL NOT SIT STILL FOR VITALS. MD NATHANIEL MADE AWARE OF THIS. 1:1 SITTER.
[2023-10-05] MEDS ORDERED: LORazepam 1 MG Tab PO ONE (07:00)
[2023-10-05] MEDS ORDERED: LORazepam 2 MG/ML 1ML Injection IV ONE (07:00)
[2023-10-05] MEDS ORDERED: HydrALAZINE HCl 20 MG / ML 1ML Vial IV PRN (07:30)
[2023-10-05] MEDS ORDERED: LORazepam 2 MG/ML 1ML Injection IV PRN (07:30)
[2023-10-05] MEDS ORDERED: Dextrose 5% 1,000 ML IV SCH (08:00)
[2023-10-05] MEDS ORDERED: Haloperidol Lactate Inj. 5 MG/ML Injection IM ONE ×2 (08:30→10:20)
--- NOTE | 2023-10-05 08:30 | NUR ---
Unable to verify if current OTP treatment recipient/treatment until tomorrow when facility open. PIV leaking after IV Ativan this am. Unable to restart with 4 staff ast as pt is thrashing in bed and is not directable. Pt refuses all po intake including meds. Dr. Magana updated. IM meds ordered. 1:1 sitter at bedside. Restraints in place.
[2023-10-05] MEDS ORDERED: Enoxaparin 40 MG/0.4 ML SYR SC SCH (09:00)
[2023-10-05] MEDS ORDERED: Atorvastatin 10 MG Tab PO SCH (09:00)
[2023-10-05] MEDS ORDERED: Sertraline HCl 100 MG Tab PO SCH (09:00)
[2023-10-05] MEDS ORDERED: ALPRAZolam 0.25 MG Tab PO SCH (09:00)
[2023-10-05] MEDS ORDERED: LORazepam 2 MG/ML 1ML Injection IM ONE (10:20)
[2023-10-05] MEDS ORDERED: DiphenhydrAMINE HCl 50 MG/ML 1ML Vial IM ONE (10:20)
[2023-10-05] MEDS ORDERED: Methadone HCL 5 MG TAB PO SCH (11:00)
[2023-10-05 11:10] VITALS: BP 151/116
[2023-10-05] MEDS ORDERED: Acetaminophen 325 MG TABLET PO PRN (13:15)
--- NOTE | 2023-10-05 14:55 | NUR ---
Pt appears to be resting more comfortably with eyes closed. Less thrashing.1:1 sitter at bedside. Will continue to follow. corset fitter to attempt power glide for IV access. Multiple attempts this am with 3 RNs and 3 additional staff to ast.
[2023-10-05 15:17] VITALS: BP 129/97
[2023-10-05] MEDS ORDERED: Cefuroxime Axetil 250 MG Tab PO SCH (21:00)
--- NOTE | 2023-10-05 21:18 | NUR ---
TOOK OVER FOR PRIMARY RN WHEN SHE TOOK HER BREAK. PT DENIES NEEDS AT THIS TIME.
--- NOTE | 2023-10-05 23:44 | NUR ---
ASSUMED CARE WHILE PRIMARY NURSE TOOK BREAK. PT DENIES NEEDS AT THIS TIME.
--- NOTE | 2023-10-06 02:56 | NUR ---
ASSUMED CARE OF PT WHEN PRIMARY NURSE WENT TO BREAK. PT DENIES NEEDS AT THIS TIME.
[2023-10-06 05:09] LABS: Bun/Creatinine Ratio 34.5 (12.0-20.0); Calcium, Blood 9.8 mg/dL (8.5-10.1); Creatinine, Blood 1.16 mg/dL (0.40-1.00); Potassium, Blood 3.7 mmol/L (3.5-5.5)
--- NOTE | 2023-10-06 05:39 | NUR ---
EOS NOTE: PATIENT HAS BECOME MORE ORIENTED & VERBAL THE NIGHT WENT ON. MOSTLY NONVERBAL UNTIL ABOUT 0200 WHEN PATIENT BEGAN ANSWERING YES/NO QUESTIONS MORE READILY, STILL DROWSY & DRIFTING OFF TO SLEEP MID CONVORSATIION. BY THE END OF THE SHIFT PATIENT WAS MORE ALERT & FOLLOWING MORE COMMANDS. SITTER & NIKHIL STILL IN PLACE PATIENT IS IMPULSIVE & FOLLOWS COMMANDS BUT GOES BACK TO PULLING AT LINES/NIKHIL WHILE TRYING TO GET OUT OF BED. PATIENT WAS ABLE TO GIVE RN VERBAL TO TALK TO DELMAR SNOW, WHO CALLED TO ASK FOR UPDATES & SEE HOW SHE COULD BE OF AID TO HOSPITAL STAFF. DELMAR IS [facility] EMERGENCY CONTACT. PATIENT SAID SHE GETS METHADONE AT A DOWNTOWN CLINIC. IV STILL IN PLACE TO L FA, SALINE LOCKED. PATIENT WAS ABLE TO LET STAFF KNOW SHE NEEDED TO VOID, STAFF PLACED PT ON BEDPAN BUT PATIENT WAS UNABLE TO FOLLOW COMMANDS FROM THERE & KEPT TAKING THE BEDPAN OUT. PT IS STILL MOSTLY INCONTINENT. DELMAR WOULD LIKE TO BE UPDATED OR INCLUDED ON PATIENTS CARE TO ASSIST WITH PATIENT LEAVING HOSPITAL WHEN THE TIME COMES, DELMAR LIVES IN [place]. WANDA HAS SOME FAMILY IN THE [place] AREA. THERE IS CONCERN OF PT DISCHARGING BACK HOME DUE TO DRUGS BEING SHARED TO/FROM HER CURRENT ROOMMATE.
[2023-10-06 05:53] VITALS: BP 127/93
[2023-10-06 07:37] VITALS: BP 122/99
[2023-10-06] MEDS ORDERED: Methadone HCL 10 MG TAB PO SCH (10:00)
[2023-10-06] MEDS ORDERED: Dextrose 5% 500 ML IV SCH (12:00)
--- NOTE | 2023-10-06 13:15 | NUR ---
FERNY FROM [facility] CALLED. RE METHADOONE, SHOULD BE RECEIVING [address] MICHAEL. HE CHANGING ORDERS/
[2023-10-06 15:31] LABS: Bun/Creatinine Ratio 27.3 (12.0-20.0); Calcium, Blood 9.2 mg/dL (8.5-10.1); Creatinine, Blood 1.54 mg/dL (0.40-1.00); Potassium, Blood 3.7 mmol/L (3.5-5.5)
[2023-10-06 16:14] VITALS: BP 72/63
[2023-10-06 16:41] VITALS: BP 90/70
--- NOTE | 2023-10-06 16:48 | NUR ---
BP 72/63 AT 1415, RECHECK 90/70 AT 1640. PT REMAINS ASYMPTOMATIC. STILL AMBULATING TO BATHROOM WITH NO S/S. DISCUSSED WITH DR MICHAEL. ORDERS FOR FLUIDS. ALSO, 2 MD HOLD CONTINUES.
[2023-10-06] MEDS ORDERED: Lactated Ringer's 1,000 ML IV SCH (16:55)
--- NOTE | 2023-10-06 17:49 | NUR ---
PT PLEASANT TODAY. ALERT TO SELF AND FAMILY. KNOWS LIVES IN [place] AND IS AT [facility], NOT SURE WHERE [facility] IS, UNABLE TO TELL ME DATE. H/R REG, NO MURMUR NOTED. NO EDEMA. LUNGS CLEAR, RESP EASY, UNLABORED. ON R.A. BT X4 LAST BM TODAY. PER PT LOOSE RUNNY STOOL TODAY. ABOUT EVERY HALF HOUR THIS AFT. VSS SOME SOFT THIS AFT. ASYMPTOMATIC. DISCUSSED WITH , NEW FLUIDS ORDERED. NO OTHYER NEW CONCERNS NOTED. BED IN LOW POSITION, CALLLITE IN REACH, CALLS APPROP. SITTER AT ROOM . 2 MD HOLD.
[2023-10-06] MEDS ORDERED: Loperamide HCl 2 MG Cap PO PRN (18:10)
[2023-10-06] MEDS ORDERED: Cranberry Extract 250MG W/30 MG Vitamin C Tab PO ONE (20:20)
[2023-10-06 21:08] VITALS: BP 96/81
[2023-10-07 03:00] VITALS: BP 101/71
--- NOTE | 2023-10-07 05:37 | NUR ---
NOC SHIFT SUMMARY PT HAS BEEN ORIENTED X4, ALERT, COOPERATIVE AND PLEASANT. SHE IS HAVING PAIN WITH URINATION, RECEIVED NEW ORDER FOR AZO, SEE MAR. STILL EXPERIENCING POOR PO INTAKE, RUNNING IVF. ON 2MD HOLD, SITTER AT BEDSIDE ALL SHIFT.
[2023-10-07 05:38] LABS: Bun/Creatinine Ratio 34.7 (12.0-20.0); Calcium, Blood 8.7 mg/dL (8.5-10.1); Creatinine, Blood 1.24 mg/dL (0.40-1.00); Potassium, Blood 3.2 mmol/L (3.5-5.5)
[2023-10-07 07:31] VITALS: BP 115/90
[2023-10-07] MEDS ORDERED: Cranberry Extract 250MG W/30 MG Vitamin C Tab PO SCH ×2 (09:00)
[2023-10-07] MEDS ORDERED: Potassium Chloride 20 MEQ/15 ML UDC PO ONE (09:40)
[2023-10-07 14:10] VITALS: BP 124/84
--- NOTE | 2023-10-07 17:37 | NUR ---
PT A/O X4 TODAY. ANSWERS QUESTIONS APPROP. CONTINUES TO BE ANX. STATES PAIN TOLERABLE WITH METHADONE ORDERED. PT STATES SHE FEELS IS GOOD TO GO HOME. NOT SURE WHY HERE. DISCUSSED LABS AND ESPECIALLY KIDNEY FUNCTION. EXPLAINED THAT DRS WILL BE LOOKING FOR HER BEST MEDICAL INTEREST TO WHEN OKAY TO BE RELEASED. PT STATES NO DIARRHEA, CONTINUES TO AMBULATE TO BATHROOM REGULARLY TO URINATE. DR DID D/C FLUIDS. SHE IS WAITING FOR DR BAEZA TO VISIT. NO OTHER NEW CONCERNS NOTED. BED IN LOW POSITION, CALL LITE IN REACH. CALLS APPROP
[2023-10-07 20:10] VITALS: BP 131/94
[2023-10-07] MEDS ORDERED: ALPRAZolam 0.25 MG Tab PO ONE (20:20)
[2023-10-07] MEDS ORDERED: Nicotine 14 MG PATCH TOP ONE (20:20)
--- NOTE | 2023-10-07 21:08 | NUR ---
THIS RN PROVIDING BREAK COVERAGE FOR PRIMARY RN.
[2023-10-08 02:26] VITALS: BP 100/74
--- NOTE | 2023-10-08 03:53 | NUR ---
SHIFT SUMMARY PT. CONTINUES ON 2MD INVOLUNTARY HOLD, INITIATED ON 10/04/23. PT. IS OBSERVED BY 1:1 SITTER IN THE HOSPITAL ROOM. PT.IN BEDREST ORDERED. PT. IS A&O X 3-4, COOP WITH CARE, ABLE TO MAKE HER NEEDS KNOWN. AT HS PT. C/O HIGH ANXIETY, AND REQUESTING A NICOTINE PATCH. THIS NURSE CALLED [facility] D[facility]ER RECESSED VAT HOSPITALIST: NEW ORDERS: 14MG NICOTINE PATCH QD AND NOW ORDER. ALSO ONE TIME ORDER XANAX 0.25MG PO. PT. COMFORTABLE T/O THIS SHIFT, NO ACUTE EVENTS/DISTRESS NOTED/REPORTED DURING NIGHT HRS. BED AT THE LOWEST POSITION, CALL LIGHT IN REACH. WILL HAND OFF TO THE INCOMING SHIFT NURSE.
[2023-10-08 06:22] LABS: Bun/Creatinine Ratio 31.9 (12.0-20.0); Creatinine, Blood 0.81 mg/dL (0.40-1.00); Potassium, Blood 3.5 mmol/L (3.5-5.5)
[2023-10-08 07:13] VITALS: BP 132/105
[2023-10-08] MEDS ORDERED: CRANBERRY450 M1 PO (11:32)
[2023-10-08] MEDS ORDERED: METH10 PO (11:33)
--- NOTE | 2023-10-08 12:30 | NUR ---
DISCHARGE NOTE PT DISCHARGED HOME AT 1210. PT PROVIDED W/ VERBAL AND WRITTEN INSTRUCTIONS AND REPORTED UNDERSTANDING. PT A&OX4, VSS, AMB IND, TOLERATING PO, VOIDING, AND PAIN MANAGED. HOLD RELEASE SIGNED BY . BELONGINGS WERE RETURNED AND PT ESCOURTED OUT VIA W/C BY JOSE MARTELL.
[2023-10-08] MEDS ORDERED: Nicotine 14 MG PATCH TOP SCH (21:00)
== END 2023-10-08 12:17 | disposition home or self-care (01) | DRG 92 ==
LOC: ER 04:24 → MEDS 04:40 → ENPENDDIS 10-08 11:00 → MEDS 10-08 12:17
PROVIDERS: Emergency Medicine; Internal Medicine; ADMIT Internal Medicine
DX: G92.8 Other toxic encephalopathy (principal); E87.0 Hyperosmolality and hypernatremia; M62.82 Rhabdomyolysis; I10 Essential (primary) hypertension; Z87.442 Personal history of urinary calculi; M54.9 Dorsalgia, unspecified; M54.2 Cervicalgia; Z90.710 Acquired absence of both cervix and uterus; Z87.891 Personal history of nicotine dependence; Z90.49 Acquired absence of other specified parts of digestive tract; Z98.890 Other specified postprocedural states; Z87.81 Personal history of (healed) traumatic fracture; Z88.0 Allergy status to penicillin; Z91.038 Other insect allergy status; Z79.899 Other long term (current) drug therapy; E03.9 Hypothyroidism, unspecified; F41.8 Other specified anxiety disorders; E87.6 Hypokalemia; E78.5 Hyperlipidemia, unspecified; F03.90 Unspecified dementia, unspecified severity, without behavioral disturbance, psychotic disturbance, mood disturbance, and anxiety
CPT/HCPCS: 36415; 71045; 80048; 80053; 81001; 82140; 82330; 82550; 83605; 83735; 84295; 84443; 84484; 85025; 87040; 87086; 93005; 93010; 96372; 96374; 96375; 96376; 99285-25; A9270; G0378; G0480; J1200; J1630; J1650; J2060; J3486; J7060; J7070; J7120

== ENCOUNTER → 2023-10-09 | Outpatient (CLI) | payer MEDICARE, OTHER ==
[~2023-10-09] MED LIST changes: +ATOR10 PO; +CRANBERRY450 M1 PO; +GABA100 PO; +METH10 PO; +PRAZ1 PO
[2023-10-09 17:16] LABS: Source, Urine Voided
[2023-10-09 18:44] LABS: Appearance, Urine Hazy (Clear); Blood, Urine 2+ (Neg); Color, Urine Yellow (P-Yellow); Glucose Qualitative, Urine Neg (Neg); Ketones, Urine Neg (Neg); Leukocyte Esterase, Urine 3+ (Neg); Nitrite, Urine Pos (Neg); Protein, Urine 1+ (Neg); Specific Gravity, Urine 1.015 (1.003-1.022); Urobilinogen, Urine 1+ (Normal)
[2023-10-09 19:11] LABS: Bilirubin, Urine 1+ (Neg)
[2023-10-09 19:12] LABS: Bacteria Many /hpf; Mucus Light (0-Heavy); Squamous Epithelial Cells Mod /hpf (Few)
== END | disposition home or self-care (01) ==
LOC: LAB SHORT 17:13 → LAB 17:13
PROVIDERS: Family Medicine
DX: N17.9 Acute kidney failure, unspecified (principal); N39.0 Urinary tract infection, site not specified
CPT/HCPCS: 81001; 87086